=== PATIENT | male | born 1970 | race Caucasian/White ===

== ENCOUNTER → 2021-08-19 | Day surgery (SDC) | payer OTHER ==
[~2021-08-19] VITALS: Ht 190.5 cm; Wt 97.5 kg
[~2021-08-19] MED LIST: LISINOPRIL-HCT1 EAC1 PO; NITRIC OXIDE PO; ZESTORETIC 20-1 EACH PO
== END | disposition home or self-care (01) ==
LOC: FAS 11:21
DX: Z12.11 Encounter for screening for malignant neoplasm of colon (principal); Z86.010 Personal history of colon polyps; Z80.0 Family history of malignant neoplasm of digestive organs; I10 Essential (primary) hypertension; Z87.891 Personal history of nicotine dependence; Z79.899 Other long term (current) drug therapy; Z72.89 Other problems related to lifestyle; Z20.828 Contact with and (suspected) exposure to other viral communicable diseases
CPT/HCPCS: J2704; J7120